=== PATIENT | female | born 2005 | race African-American/Black ===

== ENCOUNTER 2024-08-25 06:51 | Outpatient (REF) | payer OTHER, SELFPAY ==
--- NOTE | ~2024-08-25 | US_ITS ---
EXAMINATION: US PELVIS CLINICAL INFORMATION: Dysmenorrhea COMPARISON: None available. TECHNIQUE: Ultrasound of the pelvis is performed using transabdominal approach along with Doppler. FINDINGS: Limited examination. Uterus: The uterus is in retroversion flexion position and measures 7 x 4 x 5 cm. Volume: 67 cc. The double wall endometrial thickness is 2 mm. The uterus is smooth in contour and has normal myometrial echogenicity. No visible fibroid. Adnexa: Both ovaries are visualized. There is normal color flow to the adnexa. Few scattered follicles, bilaterally. No gross ascites. The cul-de-sac. Right ovary measures 3 x 2 x 2 cm. Volume: 7 cc. Left ovary measures 3 x 2 x 2 cm. Volume: 4 cc. US/US pelvic complete IMPRESSION: Limited examination demonstrated no gross abnormality. Electronically signed by: Mina Krueger MD 08/25/2024 01:27 PM EDT
--- OUTSIDE RECORDS SUMMARY | 2024-08-25 07:02 | XMS_ITS | Clinical Summary ---
Author Organization [facility] Address [address] [place] [address] Care Team Providers [employer] Name Role Phone Almita Mitchell MD Primary Care Provider [phone] Source Comments PLEASE NOTE, if this patient is a minor, it may be UNLAWFUL to discuss sensitive information that is contained in these records (such as FAMILY PLANNING, MENTAL HEALTH or SUBSTANCE ABUSE) with the minor patient's parent or other person without the patient's specific authorization.[facility] Allergies No known active allergies Medications ibuprofen 600 mg tabletIndication s:Menstrual cramp Take 1 Tablet by mouth 3 (three) times daily as needed for pain or fever 30 Tablet 2 04/06/2024 Active Active Problems Problem Noted Date Diagnosed Date Dysmenorrhea in adolescent 01/24/2022 Overview (12/10/2022): On Altavera (20 mcg estrogen) since November 2021. Conflict with mother over prescription of medication, should only be done confidentially. Ex: July 2022, [facility] gave mom Marianne's OCP refill and exacerbated conflict. Provided with enough OCP from [employer] stock in September 2022 to last through April 2023. Paused OCP use in November 2022. Resolved Problems Problem Noted Date Diagnosed Date Resolved Date Generalized anxiety disorder 02/26/2018 12/13/2021 Behavior concern 01/30/2018 11/21/2018 Overview (01/30/2018): 01/30/18 - referred to . Was initially referred at [facility] 08/2017, but mom declined due to cultural beliefs. URI 09/22/2012 11/02/2015 Nocturnal enuresis 08/12/2012 6 WELL CHILD EXAMINATION 08/12/201211/21 Immunizations Immunization Administration Dates Next Due Flu, Multi Dose 0.5 ML 02/06/2020 Flu, Preservative Free 01/21/2023,03/24/2022, HEP A, UNSPECIFIED 08/12/2012,01/04/2011 HEP B, PED/ADOL 01/04/2011,03/03/2010,01/31/2010 HPV 9 (Gardasil) 08/21/2017 HPV, QUADRIVALENT 10/15/2016,11/02/2015 Hep B, Unspecified 01/04/2011,03/03/2010, 010 INFLUENZA, SEASONAL, INJECTABLE 01/29/2018 INFLUENZA, UNSPECIFIED 04/16/2012,04/17/2011 IPV (IPOL) 08/12/2012,01/04/2011,01/31/2010 MENINGOCOCCAL MCV4, HISTORICAL 11/02/2015 MENINGOCOCCAL MCV4O (MENVEO) 12/07/2021 MMR (MMR II/Priorix) 01/04/2011,01/31/2010 PPD 11/02/2015 Pfizer COVID-19 (Comirnaty), Mrna, Lnp-s, Pf, Pelon-sucrose, 30 Mcg/0.3 Ml, 12yr+ 01/21/2023 TDAP 11/04/2019,08/12/2012 Td (adult) unspecified 04/17/2011 Td (adult), 5 Lf tetanus tox oid, preservative free 11/02/2015 Varicella (Varivax), Live Vaccine 02/07/2011, Social History Tobacco Use Types Packs/Day Years Used Date Smoking Tobacco: Never Smokeless Tobacco: Never Comments:No Social Connections Answer Date Recorded Connectedness 0 12/21/2023 Financial Resource Strain Answer Date R ecorded Financial Resource Strain 0 2018 Stress Answer Date Recorded Stress 0 12/02/2018 Physical Activity Answer Date Recorded Physical Activity 0 12/02/2018 Food Insecurity Answer Date Recorded Food 0 01/09/2024 Transportation Needs Answer Date Record ed Transportation 0 12/02/2018 Housing Stability Answer Date Recorded Housing 0 11/18/2018 Safety and Environment Answer Date Augusto rded Safety 0 12/02/2018 Utilities Answer Date Recorded Utilities 0 12/02/2018 Employment Answer Date Recorded Employment 0 12/02/2018 Comments No Sex and Gender Information Value Date Recorded Sex Assigned at Female 01/09/2022 10:42 AM PDT Legal Sex Female 6:41 PM PST Gender Identity Female 01/09/2022 10:42 AM PDT Sexual Orientation Straight 01/09/2022 10 :42 AM PDT Last Filed Vital Signs Vital Sign Reading Time Taken Comments Blood Pressure 105/65 01/21/2023 10:43 AM EDT Pulse 88 12/07/2021 11:40 AM EDT Temperature 36.7 ??C (98 ??F) 12/07/2021 11:40 AM EDT Respiratory Rate 18 11/18/2018 2:45 PM EDT Oxygen Saturation 99% 12/07/2021 11:40 AM EDT Inhaled Oxygen Concentration - - Weight 54.3 kg (119 lb 9.6 oz) 01/21/2023 10:43 AM EDT Height 166 cm (5' 5.35 ) 01/21/2023 10:43 AM EDT Body Mass Index 19.69 01/21/2023 10:43 AM EDT Plan of Treatment Health Maintenance Due Date Last Done Comments Hepatitis C Screening 2004 Tobacco Screening 2004 Relationship Safety Screening/Counseling 01/01/2019 Anxiety Screening 10/23/2019 10/22/2018 [id number] ( season) 2023 01/21/2023, 04/18/2021, 09/22/2020, Additional history exists Imm-Influenza (#1) 2023 01/21/2023, 1 05/25/2021, 02/06/2020, Additional history exists Hypertension Screening (#1) 01/21/2024 Annual Preventive Care Visit 01/22/2024 01/21/2023 Chlamydia Screening 01/22/2024 01/21/2023, 12/07/2021, 11/18/2018, Additional history exists Gonorrhea Screening 01/22/2024 01/21/2023, 12/07/2021, 11/18/2018, Additional history exists Alcohol and Drug Screen 04/15/2024 01/22/20 23, 12/07/2021, 11/04/2019, Additional history exists Depression Annual Screen 04/15/2024 01/21/2023 Imm-DTaP/Tdap/Td (5 - Td or Tdap) 11/03/2029 11/04/2019, 11/02/2015, 08/12/2012, Additional history exists Imm-Hepatitis B Completed 01/04/2011, 12/15, 03/03/2010, Additional history exists Imm-MMR Completed 01/04/2011, 01/31/2010 Imm-Varicella Completed 02/07/2011, 01/04/2011 Imm-Hepatitis A Completed 08/12/2012, 01/04/2011 Imm-HPV Completed 08/21/2017, 06/2016, 11/02/2015 HIV Screening Completed 12/07/2021 Procedures Procedure Name Priority Date/Time Associated Diagnosis Comments C TRACHOMATIS/N GONORRHOEAE RNA,TMA Routine 01/21/2023 12:00 AM EDT HIV 1/2 AG & AB W/RFLX (4TH GEN) Routine 12/07/2021 12:30 PM EDT Routine screening for STI (sexually transmitted infection) from Last 3 Months or Most Recently Relevant to Health Maintenance Results * C TRACHOMATIS/N GONORRHOEAE RNA,TMA (01/21/2023 12:00 AM EDT) CHLAMYDIA TRACHOMATIS RNA, TMA NOT DETECTED NOT DETECTED 01/22/2023 7:57 AM EDT [email or web address] GONORRHOEAE RNA, TMA NOT DETECTED NOT DETECTED 01/22/2023 7:57 AM EDT [email or web address] 01/21/2023 12:0 0 AM EDT 01/21/2023 9:56 PM EDT Narrative [email or web address] - 01/22/2023 8:06 AM EDT The analytical performance characteristics of this assay, when used to test SurePath(TM) specimens have been determined by [facility]. The modifications have not been cleared or approved by the FDA. This assay has been validated pursuant to the CLIA regulations and is used for clinical purposes. . For additional information, please refer to https://education.[employer]/faq/RKM357 (This link is being provided for information/ educational purposes only.) . us Almita Mitchell MD LAB - NO BLOOD DRAW Final Res ult Performing Organization Address City/[facility]/ZIP Co de Phone Number [email or web address] [address] [place] [id number], [email or web address] [address] [phone] * HIV 1/2 AG & AB W/RFLX (4TH GEN) (12/07/2021 12:30 PM EDT) HIV AG/AB, 4TH GEN NON-REACT ANDREA NON-REACT ANDREA 12/07/2021 10:40 PM EDT [facility] Blood Blood / Unknown 12/07/2021 1 2:30 PM EDT 12/07/2021 8:58 PM EDT Narrative [facility] - 12/08/2021 12:07 AM EDT HIV-1 antigen and HIV-1/HIV-2 antibodies were not detected. There is no laboratory evidence of HIV infection. . PLEASE NOTE: This information has been disclosed to you from records whose confidentiality may be protected by state law. ??If your state requires such protection, then the state law prohibits you from making any further disclosure of the information without the specific written consent of the person to whom it pertains, or as otherwise permitted by law. A general authorization for the release of medical or other information is NOT sufficient for this purpose. . For additional information please refer to http://education.[employer]faq/TWP902 (This link is being provided for informational/ educational purposes only.) . . The performance of this assay has not been clinically validated in patients less than 2 years old. . us Almita Mitchell MD LAB - BLOOD DRAW Edited Resul t - Final Performing Organization Address [facility]/ZIP Co de Phone Number [facility] [address] [place] [id number], [email or web address] [address] [phone] from Last 3 Months or Most Recently Relevant to Health Maintenance Insurance [facility] [employer] [facility] [employer] Member Subscriber Plan / Payer (Ef fective 2018-Present) Name:Marianne Harris Relation to Subscriber:Self Name:Marianne Harris Payer ID:[id number] Group ID:Not on file Type:Medicaid Address: [facility] [address] [place] [address] Care Teams [employer] Relationship Specialty Start Date End Date Almita Mitchell MD [address] [place] [address] PCP - General Pediatrics 06/09/19
== END 2024-08-25 06:52 | disposition home or self-care (01) ==
LOC: HO.UMASIMG 06:51
PROVIDERS: Visit Provider Nurse Practitioner Women's Health
DX: N94.6 Dysmenorrhea, unspecified (principal)
CPT/HCPCS: 76856